=== PATIENT | female | born 1945 | race Caucasian/White ===

== ENCOUNTER 2023-04-11 01:27 | Day surgery (SDC) | payer MEDICARE, OTHER, SELFPAY ==
[2023-04-10 10:25] VITALS: BMI 28.4
[2023-04-11 08:34] VITALS: BP 151/67; PULSE 61; RESP 14; TEMP 36.4; O2SAT 98; BMI 28.9
--- NOTE | 2023-04-11 09:58 | WPDHPUPDATE1 ---
History and Physical Update Update Date/Time: 04/11/23 09:[address] Valdez w/ h/o palpitations and recent stroke who is here for the implantation of a loop recorder to evaluate for any paroxysmal atrial fibrillation. She takes aspirin. History and Physical has been reviewed, including an updated exam of the patient. There are NO changes in the patient's condition. Risks, benefits, and alternatives have been discussed and questions answered. Risks include infection, allergic reactions among others. Patient agrees to proceed with procedure.
--- NOTE | 2023-04-11 10:07 | P.SEDATION_ITS ---
Moderate Sedation Note-Pt Data Patient Data Diagnosis: Cryptogenic stroke Present Complaint: Cryptogenic stroke, palpitations, r/o a fib, here for a loop recorder implant Procedure to be performed/Plan: Loop recorder implant under local anesthesia, possible conscious sedation. Allergies Allergy/AdvReac Type Severity Reaction Status Date / Time No Known Allergies Allergy Verified 04/11/23 08:31 Home Medications Medication Instructions Recorded Confirmed Type alprazolam 0.25 mg tablet 0.25 mg PO HS 04/10/23 04/10/23 History cetirizine 10 mg tablet 10 mg PO DAILY 04/10/23 04/10/23 History escitalopram oxalate 20 mg tablet 20 mg PO DAILY 04/10/23 04/10/23 History fluticasone furoate 100 1 inh inhalation DAILY 04/10/23 04/11/23 History mcg-vilanterol 25 mcg/dose inhalation powder (Breo Ellipta) loratadine 10 mg tablet 10 mg PO DAILY PRN Allergic 04/10/23 04/10/23 History Symptoms losartan 100 1 tablet PO DAILY 04/10/23 04/10/23 History mg-hydrochlorothiazide 25 mg tablet metoprolol tartrate 25 mg tablet 25 mg PO BID 04/10/23 04/11/23 History montelukast 10 mg tablet 10 mg PO HS 04/10/23 04/10/23 History omeprazole 20 mg capsule,delayed 20 mg PO DAILY 04/10/23 04/10/23 History release ropinirole 1 mg tablet 1 mg PO HS 04/10/23 04/10/23 History rosuvastatin 40 mg tablet 40 mg PO HS 04/10/23 04/10/23 History trazodone 150 mg tablet 150 mg PO HS 04/10/23 04/10/23 History Sedation/Anesthesia: No previous sedation/anesthesia problems (including family history). [facility] Past Medical History Medical History (Updated 04/11/23 @ 10:10 by Juliette Roy MD) Asthma CVA (cerebral vascular accident) brainstem infarct . HTN (hypertension) ERNST (obstructive sleep apnea) Surgical History Surgical History (Updated 04/11/23 @ 10:10 by Juliette Roy MD) H/O: hysterectomy Family History Family History (Updated 04/11/23 @ 10:12 by Juliette Roy MD) Mother Cancer Sibling T-cell lymphoma Other Heart disease Social History Social History Smoking status: Never smoker Alcohol intake: never Substance use type: does not use Living arrangements: with family Spiritual care concerns: No Mod Sed Physical Exam Physical Exam Pre Procedural Exam: Normal: Appearance, Eyes, Ears, Nose, Neck, Throat, Airway, Lungs, Heart Size, Heart Rate, Heart Rhythm, Neuro Exam, Abdomen, Extremities and Skin (left prepeectoral area free of lesions) Hours since solid foods: 12 (cc) Hours since liquid intake: 12 Mallampati Classification: class II Internal Medicine - PN: Obj Da Vital Signs Vital Signs: Vital Signs - 24 hr 04/11/23 08:34 Temperature 97.6 F Pulse Rate 61 Respiratory Rate 14 Blood Pressure 151/67 H Pulse Oximetry 98 Oxygen Delivery Room Air ASA Classification/Sedation ASA Classification/Sedation ASA Class: III Emergent: No Risks: Risks, benefits and alternatives explained and patient/family accepted plan for sedation. Patient re-evaluated immediately prior to sedation.
[2023-04-11 10:17] VITALS: BP 166/71; PULSE 58; RESP 18; O2SAT 94
[2023-04-11 10:30] VITALS: BP 163/70; PULSE 57; RESP 20; O2SAT 96
--- NOTE | 2023-04-11 10:44 | PM.OP ---
Procedure Note - Brief Procedure Note - Brief Date of procedure: 04/11/23 CVA Post-op diagnosis: Other (s/p loop implant) Procedure performed: Implantation of a Medtronic loop recorder under local anesthesia Surgeon: Juliette Roy MD Description of procedure: Uneventful implant Complications: No immediate complications Condition: Stable Disposition: Observation
[2023-04-11 10:45] VITALS: BP 147/108; PULSE 62; RESP 19; O2SAT 100
--- NOTE | 2023-04-11 10:45 | W.PM.PROC2 ---
Procedure Note - Detailed Date of Procedure 04/11/23 Pre-op Diagnosis CVA Post-op Diagnosis Other (s/p Medtronic loop recorder implant) Procedure Performed Implantation of a Medtronic loop recorder Surgeon Juliette Roy MD Anesthesia Local Indications Pt followed by Dr. Valdez w/ h/o palpitations and recent cryptogenic stroke who is here for the implantation of a loop recorder to evaluate for any paroxysmal atrial fibrillation.? She takes aspirin.? Description of Procedure After informed consent, the patient's left parasternal area was prepped and draped in usual fashion. She received 1% lidocaine over the 3rd-4th intercostal space and a Medtronic LINQ loop recorder was inserted in the standard fashion. Hemostasis was obtained with local pressure. The incision was closed with skin adhesive,, and dressed with a clean large Band-Aid. She tolerated the procedure well with no complications. The device was interrogated and R-wave sensing was found to be good. R wave 0.47 mV Follow-up: The patient is given information about remote monitoring, will follow-up in our office in 1 week for an incision check Implants Medtronic LINQ II Serial #: [id number] Estimated Blood Loss 1 (cc) Complications No immediate complications Condition Stable Disposition Observation
[2023-04-11 11:15] VITALS: BP 159/77; PULSE 60; RESP 17; O2SAT 97
== END 2023-04-11 11:46 | disposition home or self-care (01) ==
PROVIDERS: Visit Provider Internal Medicine Cardiovascular Disease
PROC: (CPT 33285; principal; 2023-04-11 10:00)
DX: I63.9 Cerebral infarction, unspecified (principal); J45.909 Unspecified asthma, uncomplicated; I10 Essential (primary) hypertension; G47.33 Obstructive sleep apnea (adult) (pediatric); Z79.51 Long term (current) use of inhaled steroids
CPT/HCPCS: 33285; C1764

== ENCOUNTER 2023-12-04 11:38 | Outpatient (CLI) | payer MEDICARE, OTHER, SELFPAY ==
--- NOTE | ~2023-12-04 | CT_ITS ---
EXAMINATION: CT IAC/mastoids BI wo con DATE: 12/04/2023 12:16 INDICATION: Other specified diseases of anterior. Sensorineural hearing loss. TECHNIQUE: Computed tomography (CT) of the temporal bones was performed without intravenous contrast. Automated exposure control and iterative reconstruction technique were employed. The dose-length pro duct was 262.84 mGy-cm. COMPARISON: None FINDINGS: There are likely changes of ocular lens replacement surgeries. There is mucosal thickening in the paranasal sinuses. RIGHT TEMPORAL BONE: The internal auditory canal, cochlea, vestibule, semicircular canals, vestibular aqueduct, carotid ca nal, jugular bulb, facial nerve course, ossicles, Prussak space, scutum, tympanic membrane, external auditory canal, and mastoid air cells are normal. LEFT TEMPORAL BONE: The internal auditory canal, cochlea, vestibule, semicircular canals, vestibular aqueduct, carotid ca nal, jugular bulb, facial nerve course, ossicles, Prussak space, scutum, tympanic membrane, external auditory canal, and mastoid air cells are normal. IMPRESSION: 1. Normal temporal bones. Reviewed, dictated and finalized at location A. IMPRESSION: 1. Normal temporal bones.
== END 2023-12-04 11:39 | disposition home or self-care (01) ==
PROVIDERS: Visit Provider Otolaryngology
DX: H83.8X9 Other specified diseases of inner ear, unspecified ear (principal); I63.9 Cerebral infarction, unspecified; H90.A21 Sensorineural hearing loss, unilateral, right ear, with restricted hearing on the contralateral side
CPT/HCPCS: 70480